=== PATIENT | female | born 1980 | race Caucasian/White ===

== ENCOUNTER → 2017-04-02 | Outpatient (CLI) | payer BC, OTHER ==
[~2017-04-02] MED LIST: IBUP-15 PO; PREN1TAB14 PO
--- NOTE | 2017-04-02 19:42 | Diagnostic Imaging Report ---
PROCEDURE: US PELVIC (NON OB) TECHNIQUE: Multiple real-time grayscale images were obtained over the pelvis in various projections transabdominally. INDICATION: Right-sided pelvic pain. FINDINGS: The uterus is 11.6 x 5.9 x 5.2 cm in size. The endometrial stripe is 1.2 cm in thickness. The myometrium is fairly homogeneous with no focal mass seen. There is a small amount of free fluid noted in the pelvis. The right ovary is 2.9 x 2.1 x 3.9 cm. The left ovary is 2.2 x 2 x 1.4 cm. The ovaries demonstrate arterial and venous waveforms on the right side and venous waveforms seen on the left. IMPRESSION: Nonspecific small amount of free fluid in the cul-de-sac and right adnexa. Dictated by: Dictated on workstation # [id number]
== END ==
LOC: RAD 12:32
PROVIDERS: ATTEND Family Medicine
DX: R10.2 Pelvic and perineal pain (principal)
CPT/HCPCS: 76856

== ENCOUNTER → 2019-07-08 | Outpatient (CLI) | payer BC ==
[~2019-07-08] MED LIST changes: -IBUP-15 PO; +IBUP-16 PO
--- NOTE | 2019-07-08 12:50 | Diagnostic Imaging Report ---
EXAMINATION: CT Abdomen Pelvis without contrast. TECHNIQUE: Multiple contiguous axial images were obtained through the abdomen and pelvis without the use of intravenous contrast. All CT scans use one or more of the following dose optimizing techniques: automated exposure control, MA and/or KvP adjustment based on a patient size and exam type, or iterative reconstruction. HISTORY: HEMATURIA,RIGHT FLANK PAIN COMPARISON: None available. FINDINGS: Limited views of the lower thorax are unremarkable. The liver is normal without focal lesion. There is no biliary ductal dilation. Gallbladder is normal. Pancreas is normal. Spleen is normal. Adrenal glands are normal. The kidneys are normal. There is no hydronephrosis. Urinary bladder is normal. No renal or ureteral stones. Phleboliths are seen in the pelvis. Endometrial thickening is likely related to the phase of the menstrual cycle. Physiologic cyst is present in the right ovary. There are no dilated loops of large or small bowel. No obstruction or inflammation. No free fluid or air. No abdominal or pelvic lymphadenopathy. Aorta is normal in caliber without aneurysm. There are no suspicious osseous lesions. IMPRESSION: 1. No acute abnormality in the abdomen or pelvis. No renal or ureteral calculi. Dictated by: Dictated on workstation # [id number]
== END ==
LOC: RAD 11:32
PROVIDERS: ATTEND Family Medicine
DX: R31.9 Hematuria, unspecified (principal)
CPT/HCPCS: 74176

== ENCOUNTER → 2019-12-23 | Outpatient (CLI) | payer BC ==
--- NOTE | 2019-12-23 12:45 | Diagnostic Imaging Report ---
INDICATION: Routine screening. COMPARISON: 05/18/2014. TECHNIQUE: 2D and 3D bilateral screening mammography was performed with CAD. FINDINGS: Both breasts are heterogeneously dense, limiting the sensitivity of mammography. The parenchymal pattern is stable. The axillae are unremarkable. IMPRESSION: No mammographic features suspicious for malignancy are identified. ACR BI-RADS Category 1: Negative. Result letter will be mailed to the patient. Note: At least 10% of breast cancer is not imaged by mammography. Dictated by: Dictated on workstation # [id number]
== END ==
LOC: RAD 09:47
PROVIDERS: ATTEND Family Medicine
DX: Z12.31 Encounter for screening mammogram for malignant neoplasm of breast (principal)
CPT/HCPCS: 77063; 77067

== ENCOUNTER → 2021-10-25 | Outpatient (CLI) | payer BC ==
--- NOTE | 2021-10-25 11:53 | Diagnostic Imaging Report ---
INDICATION: Routine screening. Comparison is made with prior mammogram 12/23/2019 and 05/18/2014. 2-D and 3-D bilateral screening mammography was performed with CAD. CAD is utilized. The current study was also evaluated with a Computer Aided Detection (CAD) system. Both breasts are heterogeneously dense, limiting the sensitivity of mammography. There are some calcifications in the upper and outer aspect of the left breast anterior depth which may be slightly more numerous when compared with prior mammograms. No masses are seen. Axillae are unremarkable. IMPRESSION: BI-RADS 0 Left breast calcifications. Additional views are recommended for further evaluation. ACR BI-RADS Category 0: Incomplete. (Needs additional imaging evaluation). Result letter will be mailed to the patient. Note: At least 10% of breast cancer is not imaged by mammography. Dictated by: Dictated on workstation # [id number]
== END ==
LOC: RAD 09:45
PROVIDERS: ATTEND Family Medicine
DX: Z12.31 Encounter for screening mammogram for malignant neoplasm of breast (principal); R92.1 Mammographic calcification found on diagnostic imaging of breast
CPT/HCPCS: 77063; 77067

== ENCOUNTER → 2021-11-02 | Outpatient (CLI) | payer BC ==
--- NOTE | 2021-11-02 17:55 | Diagnostic Imaging Report ---
INDICATION: Left breast calcifications. Patient presents for additional views. Comparison is made to screening study from 10/25/2021. Unilateral left 2-D and 3-D diagnostic mammography was performed. This included magnification CC and ML views as well as conventional 90 degrees lateral views. Additional views confirm the presence of a subtle area of microcalcifications in the upper outer left breast anterior depth. Overall number of calcifications appear increased since prior mammogram from 2019. These are considered indeterminate. No mass is identified. IMPRESSION: Increase in number of a cluster of microcalcifications in upper outer left breast anterior depth. Tissue sampling is recommended. These would be amenable to stereotactic biopsy approach. ACR BI-RADS Category 4: Suspicious abnormality. Result letter will be mailed to the patient. Note: At least 10% of breast cancer is not imaged by mammography. BI-RADS Category 4 Dictated by: Dictated on workstation # [id number]
== END ==
LOC: RAD 13:15
PROVIDERS: ATTEND Family Medicine
DX: R92.0 Mammographic microcalcification found on diagnostic imaging of breast (principal)
CPT/HCPCS: 77065; G0279

== ENCOUNTER → 2021-11-09 | Outpatient (CLI) | payer BC ==
[~2021-11-09] VITALS: Ht 154.9 cm; Wt 59.1 kg
[~2021-11-09] MED LIST changes: +LIDOCAINE 1% INJ 20 ML VIAL INJ ONE
--- NOTE | 2021-11-09 13:38 | Diagnostic Imaging Report ---
INDICATION: Left breast calcifications. Patient presents for stereotactic biopsy. DETAILS OF THE PROCEDURE: The patient was brought to the stereotactic suite and placed in a chair in the sitting upright position. The left breast was positioned craniocaudal. The cluster of indeterminate microcalcifications in the upper and outer aspect of the left breast at anterior depth was stereotactically targeted. All images were viewed on a dedicated workstation. The left breast was then prepped and draped in the usual sterile fashion. A small amount of 1% lidocaine was utilized for local anesthesia. An 8-gauge vacuum-assisted needle was advanced and placed per stereotactic coordinates. A total of 4 core samples was obtained. A specimen radiograph was obtained demonstrating microcalcifications within all 4 samples. A marker clip was then deployed. Followup 2D CC and ML mammography was performed demonstrating a marker clip in the upper outer left breast. Hemostasis was obtained using manual compression. The patient tolerated the procedure well and left the Department in stable condition. IMPRESSION: Successful stereotactic biopsy of left breast calcifications. Pathology results are currently pending. Dictated by: Dictated on workstation # [id number]
== END ==
LOC: RAD 10:30
PROVIDERS: ATTEND Family Medicine
DX: R92.0 Mammographic microcalcification found on diagnostic imaging of breast (principal)
CPT/HCPCS: 19081; A4648

== ENCOUNTER → 2022-07-03 | Outpatient (CLI) | payer BC ==
[~2022-07-03] MED LIST changes: -LIDOCAINE 1% INJ 20 ML VIAL INJ ONE
--- NOTE | 2022-07-03 11:21 | Diagnostic Imaging Report ---
PROCEDURE: MRI right joint lower extremity without contrast. TECHNIQUE: Multiplanar, multisequence non contrast-enhanced MRI of the right lower extremity was accomplished. INDICATION: Right knee pain. COMPARISON: None. FINDINGS: There is mild motion artifact on multiple sequences. No acute fracture is seen in the right knee. There is a moderate right knee joint effusion. The articular cartilage in the patellofemoral compartment demonstrates mild heterogeneity and surface irregularity. The cartilage in the medial and lateral compartments appears intact. The medial meniscus has a bucket-handle tear which is flipped laterally toward the intercondylar eminence. The lateral meniscus appears intact. The anterior and posterior cruciate ligaments are intact. The medial collateral ligament appears intact. The lateral collateral ligamentous complex is intact. The extensor mechanism is intact. The medial and lateral retinacula appear to be intact. IMPRESSION: 1. Flipped bucket-handle tear of the medial meniscus in the right knee. 2. Moderate right knee joint effusion. Dictated by: Dictated on workstation # [id number]
== END ==
LOC: RAD 09:30
PROVIDERS: ATTEND Family Medicine
DX: S83.211A Bucket-handle tear of medial meniscus, current injury, right knee, initial encounter (principal); X58.XXXA Exposure to other specified factors, initial encounter
CPT/HCPCS: 73721